=== PATIENT | female | born 1930 | race Caucasian/White ===

== ENCOUNTER → 2017-02-17 | Outpatient (CLI) | payer BC ==
[~2017-02-17] MED LIST: ASPCH81X PO; ATEN50TA PO; ATOR10TA82 PO; FURO20TA PO; LEVO75TA5 PO; LORA1TAB13 PO; NIFE60TA57 PO; PANT40TA PO; SERT50TA PO
--- NOTE | 2017-02-17 15:16 | MAMMOGRAPHY REPORT ---
BILATERAL DIGITAL SCREENING MAMMOGRAM WITH CAD: 02/17/2017 CLINICAL HISTORY: Routine screening. Patient has no complaints. TECHNIQUE: Bilateral CC and MLO views were obtained. Current study was also evaluated with a Comput er Aided Detection (CAD) system. COMPARISON: Comparison is made to exams dated: 02/13/2016 mammogram, 02/10/2015 mammogram, 02/09/2014 m ammogram, 02/08/2013 mammogram, 02/06/2012 mammogram, and 02/05/2011 mammogram - [facility] ter. BREAST COMPOSITION: The tissue of both breasts is heterogeneously dense, which may obscure small ma sses. FINDINGS: The parenchymal pattern is similar to prior exams. There are stable benign-appearing pedro cifications within the left breast. No developing mass, architectural distortion or cluster of susp icious microcalcifications is seen in either breast. IMPRESSION: ACR BI-RADS CATEGORY 2: BENIGN There is no mammographic evidence of malignancy. A 1 year screening mammogram is recommended. The p atient will receive written notification of the results. Approximately 10% of breast cancers are not detected with mammography. A negative mammographic repor t should not delay biopsy if a clinically suggestive mass is present. Micki Gonzales M.D. ay/:02/17/2017 15:03:45 Lead Manufacturing Technician: Amy TORO)(M), [facility] letter sent: Normal 1/2 BI-RADS Code: ACR BI-RADS Category 2: Benign
== END | disposition home or self-care (01) ==
LOC: C.MAMM 08:41
PROVIDERS: ATTEND Internal Medicine
DX: Z12.31 Encounter for screening mammogram for malignant neoplasm of breast (principal)

== ENCOUNTER → 2018-02-18 | Outpatient (CLI) | payer BC ==
--- NOTE | 2018-02-18 15:14 | MAMMOGRAPHY REPORT ---
BILATERAL DIGITAL SCREENING MAMMOGRAM TOMOSYNTHESIS WITH CAD: 02/18/2018 CLINICAL HISTORY: Routine screening. Patient has no complaints. TECHNIQUE: Breast tomosynthesis in addition to standard 2D mammography was performed. Current study was also evaluated with a Computer Aided Detection (CAD) system. COMPARISON: Comparison is made to exams dated: 02/17/2017 mammogram, 02/13/2016 mammogram, 02/10/2015 m ammogram, 02/09/2014 mammogram, 02/08/2013 mammogram, and 02/06/2012 mammogram - [facility] er. BREAST COMPOSITION: The tissue of both breasts is heterogeneously dense, which may obscure small mas ses. FINDINGS: The parenchymal pattern is unchanged. There are stable benign calcifications in the left b reast. No developing mass, architectural distortion or cluster of suspicious microcalcifications is s een in either breast. IMPRESSION: ACR BI-RADS CATEGORY 2: BENIGN There is no mammographic evidence of malignancy. A 1 year screening mammogram is recommended. The pa tient will receive written notification of the results. Approximately 10% of breast cancers are not detected with mammography. A negative mammographic report should not delay biopsy if a clinically suggestive mass is present. Micki Gonzales M.D. ay/:02/18/2018 09:44:43 Fusion Juncture Grinder: Amy TORO)(M), [facility] letter sent: Normal 1/2 BI-RADS Code: ACR BI-RADS Category 2: Benign
== END | disposition home or self-care (01) ==
LOC: C.MAMM 08:41
PROVIDERS: ATTEND Internal Medicine
DX: Z12.31 Encounter for screening mammogram for malignant neoplasm of breast (principal)

== ENCOUNTER 2019-10-16 11:55 | Inpatient (IN) ==
[2019-10-16 13:27] LABS: Appearance Urine Clear (Clear); Bilirubin Urine Negative (Negative); Blood Urine Trace (Negative); Color Urine Yellow; Glucose Urine UA Negative (Negative); Ketones Urine Negative (Negative); Leukocyte Esterase Urine Negative (Negative); Nitrite Urine Negative (Negative); Protein Urine Negative (Negative); Specific Gravity Urine 1.025 (1.000-1.030); Urobilinogen Urine Negative (Negative)
[2019-10-16 13:29] LABS: Basophils # (auto) 0.01 K/uL (0-0.2); Basophils % (auto) 0.1 %; Eosinophils # (auto) 0.03 K/uL (0-0.5); Eosinophils % (auto) 0.3 %; Hematocrit (blood only) 39.9 % (37-47); Hemoglobin 13.2 g/dL (12.0-16.0); Immature Granulocytes # (auto) 0.02 K/uL (0.00-0.02); Immature Granulocytes % (auto) 0.2 %; Lymphocytes # (auto) 1.22 K/uL (1.2-3.4); Lymphocytes % (auto) 11.6 %; Mean Corpuscular Hemoglobin 33.1 pg (25-34); Mean Corpuscular Hgb Conc 33.1 g/dL (32-36); Mean Platelet Volume 9.9 fL (7.4-10.4); Monocytes # (auto) 0.76 K/uL (0.11-0.59); Monocytes % (auto) 7.2 %; Neutrophils # (auto) 8.52 K/uL (1.4-6.5); Neutrophils % (auto) 80.6 %; Platelet Count 215 K/uL (130-400); RDW Coefficient of Variation 12.8 % (11.5-14.5); Red Blood Count 3.99 M/uL (4.2-5.4); White Blood Count 10.56 K/uL (4.8-10.8)
[2019-10-16 13:40] LABS: Mucus Urine Present (None Prsent); RBC Urine 0-4 /hpf (0-4); WBC Urine 0-5 /hpf (0-5)
[2019-10-16 13:41] LABS: Bacteria Urine 1+ (Negative)
[2019-10-16 13:45] LABS: Alanine Aminotransferase 25 U/L (12-78); Albumin Level 3.6 gm/dl (3.4-5.0); Aspartate Aminotransferase 18 U/L (15-37); BUN Creatinine Ratio 24.1 (10-20); Blood Urea Nitrogen 19 mg/dl (7-18); Calcium 8.8 mg/dl (8.5-10.1); Carbon Dioxide 31 mmol/L (21-32); Chloride 109 mmol/L (98-107); Creatinine Clr Calc Pharmacy 37.4 ml/min; Est GFR (African American) 74.6; Est GFR (Non-African American) 64.4; Glucose 107 mg/dl (70-99); Magnesium 2.1 mg/dl (1.8-2.4); Potassium 3.8 mmol/L (3.5-5.1); Sodium 143 mmol/L (136-145)
--- NOTE | 2019-10-16 13:49 | XRay Report ---
XR chest 1V portable CLINICAL HISTORY: weakness COMPARISON STUDY: Chest radiograph August 30, 2018. FINDINGS: Lung volumes are mildly increased. Lungs are clear. There is no pneumothorax or pleural eff usion. Cardiac size is normal. Mediastinal contours are normal. There is no evidence for pulmonary ed taylor. Skinfold projects over the left hemithorax. IMPRESSION: No acute cardiopulmonary findings. Electronically signed by: Van Patrick M.D. 10/16/2019 1:47 PM
[2019-10-16 13:56] LABS: Alkaline Phosphatase 67 U/L (45-117); Bilirubin,Total 0.3 mg/dl (0.2-1); Globulin 3.5 gm/dl (2.5-4.0); Total Protein 7.1 gm/dl (6.4-8.2); Troponin I < 0.015 ng/ml (0-0.045)
--- NOTE | 2019-10-16 14:28 | CT Scan Report ---
CT OF THE HEAD WITHOUT CONTRAST CLINICAL HISTORY: Altered mental status. COMPARISON STUDY: Head CT October 22, 2015. CT DOSE: 709.48 mGy.cm TECHNIQUE: Helical axial images of the head were obtained without IV contrast. Automated exposure con trol was utilized for the study. A dose lowering technique was utilized adhering to the principles o f ALARA. FINDINGS: No acute intracranial hemorrhage, midline shift or mass effect is present. The ventricular system is unremarkable. The basilar cisterns are patent. No extra-axial collections are present. Ther e are no findings to suggest acute dural sinus thrombosis or acute territorial infarct. No significan t calvarial abnormalities are present. Visualized portions of the sinuses and mastoid air cells are c lear. White matter hypodensity suggests small vessel disease. The appearance of the brain is unchange d. IMPRESSION: No acute intracranial findings. Electronically signed by: Van Patrick M.D. 10/16/2019 2:27 PM
[2019-10-16] MEDS ORDERED: SODIUM CHLORIDE 0.9% 1000ML 1,000 ML IV STA (15:09)
--- NOTE | 2019-10-16 16:06 | History & Physical Report ---
Date of Service October 16, 2019 Assessment & Plan (1) Dementia: We will place her under observation, have case management see if they can place her into the appropriate facility. She will likely be here less than 2 midnights. ROS-I am not sure how reliable her review of systems this, however she complains of no Headache, No Visual Changes, No Nausea, No Vomiting, No Fever, No Chills, No Neck Pain or Stiffness, No Chest Pain, No Palpitations, No SOB, No REESE, No Cough, No Sputum, No Wheezing, No Abdominal Pain, No Diarrhea, No Hematemesis, No Hemoptysis, No Unexpected Weight Loss, No Flank pain, No Melena, No Hematochezia, No Frequency, No Urgency, No Burning, No Hematuria, No Rashes, No Diaphoresis. Appetite is Normal Physical Exam Gen-AAO x 2, NAD, Afebrile Head-NCAT, EOMI, PERRLA, Anicteric Sclera, No Posterior Pharyngeal Erythema Neck-Supple, No JVD, No Thyromegaly, No Masses, No LAD, No Bruits Lungs-Clear to Auscultation Bilaterally, No Rales, No Rhonchi, No Wheezing, No Crepitus Chest-No S4, +S1, +S2, No S3, No Murmurs, No Rubs, No Gallops, No Ectopy Abdomen-Soft, Bowel Sounds Present, Non Tender, Non Distended, No Hepatomegaly, No Splenomegaly, No Palpable Masses, No Rebound, No Rigidity, No Guarding Musculoskeletal-Full Range of Motion Bilaterally, No CVAT Extremities-No Cyanosis, No Clubbing, No Edema Nuero-Cranial Nerves II-XII grossly intact, Motor WNL, DTRs WNL, Strength WNL, Non Focal Psych-Normal Mood History of Present Illness 89-year-old white female with a past medical history of dementia was brought into the emergency room because she was walking around her bare feet outside. The ER physician felt it was too unsafe to send her home and was unable to place her from the ER. We will place her under observation and try to place her into a safer setting. She lives alone and has no children. A friend of hers was at the bedside to help with the history. Primary Care Provider: Arias Varghese DO Allergies Allergy/AdvReac Type Severity Reaction Status Date / Time Penicillins Allergy Intermediate RASH Verified 10/16/19 13:06 chocolate flavor Allergy Nausea Unverified 10/16/19 13:06 cinnamon Allergy Nausea Unverified 10/16/19 13:06 aspirin AdvReac Unknown Unverified 10/16/19 13:06 influenza virus vaccine tvs AdvReac Unknown Unverified 10/16/19 13:06 [id number](65 years up) [From Fluad 4539-5496 (65 yr up)(PF)] vaccine adjuvant emulsion AdvReac Unknown Unverified 10/16/19 13:06 MF59C.1 [From Fluad 1790-7332 (65 yr up)(PF)] Home Medications Home Medications Medication Instructions Recorded Confirmed Type calcium carbonate-vitamin D3 1 tab PO DAILY 08/30/18 10/16/19 History [Caltrate with Vitamin D3] multivitamin 1 cap PO QAM 08/30/18 10/16/19 History Past Med/Surg History Medical History Dementia Hard of hearing (Chronic) Family History Other No pertinent family history Social History Preferred Language: Afghan Feels Safe at Home: Yes Smoking Status: Never smoker Results & Data Vital Signs (Past 12 Hours) Vital Signs Temp Pulse Pulse Resp BP BP Pulse Ox 10/16/19 15:31 74 19 98 10/16/19 15:30 74 20 171/83 H 98 10/16/19 15:01 75 17 97 10/16/19 15:00 77 18 182/81 H 97 10/16/19 14:30 71 73 20 159/86 H 159/86 H 98 10/16/19 14:04 71 18 175/89 H 97 10/16/19 14:03 72 14 10/16/19 13:55 71 17 175/89 H 97 10/16/19 13:30 80 27 H 192/106 H 10/16/19 13:25 79 20 10/16/19 13:20 81 17 193/80 H 10/16/19 12:12 36.7 C 79 16 171/81 H 98 Allergies Penicillins Allergy (Intermediate, Verified 10/16/19 13:06) RASH chocolate flavor Allergy (Unverified 10/16/19 13:06) Nausea cinnamon Allergy (Unverified 10/16/19 13:06) Nausea aspirin Adverse Reaction (Unverified 10/16/19 13:06) Unknown influenza virus vaccine tvs [id number](65 years up) [From Fluad 2658-2903 (65 yr up)(PF)] Adverse Reaction (Unverified 10/16/19 13:06) Unknown vaccine adjuvant emulsion MF59C.1 [From Fluad [id number] (65 yr up)(PF)] Adverse Reaction (Unverified 10/16/19 13:06) Unknown Height/Weight/Isolation Height 5 ft 5 in Weight 50.3 kg Chemistry 10/16/19 13:21 Sodium 143 Potassium 3.8 Chloride 109 H Carbon Dioxide 31 Anion Gap 3.0 BUN 19 H Creatinine 0.81 Glucose 107 H Urinalysis 10/16/19 13:16 Urine Color Yellow Urine Appearance Clear Urine pH 6.0 Ur Specific [place] 1.025 Urine Protein Negative Urine Glucose (UA) Negative Urine Ketones Negative Urine Blood Trace H Urine Nitrite Negative Urine Bilirubin Negative Microbiology 10/16/19 13:16 Urine,Clean Catch Urine Culture - Pending
[2019-10-16] MEDS ORDERED: POLYETHYLENE (MIRALAX) 17 GM PACK PO PRN (16:31)
[2019-10-16] MEDS ORDERED: SODIUM CHLORIDE 0.9% 1000ML 1,000 ML IV SCH (16:31)
[2019-10-16] MEDS ORDERED: ACETAMINOPHEN 325 MG TAB PO PRN (16:31)
--- NOTE | 2019-10-16 17:47 | Emergency Department Note ---
Entered by Donald Wright acting as a scribe for ED Provider Note CHIEF COMPLAINT: Altered mental status HISTORY OF PRESENT ILLNESS: The patient is an 89 year old female who presents to the Emergency Room with friends for worsening altered mental status over the past week. Per the friend, the patient has progressing dementia and has not been acting like her baseline as of late. The friend reports the patient is checked on by a visiting nurse who noticed the patient has been hording things and keeping food well past their expiration date. The friend also notes the patient has been confused and last week walked outside for scientology in the blistering cold without a coat. The patient also has had a decrease in her appetite. The patient is unaware of why she is here and does not have any current complaints. HPI is limited secondary to the patient's altered mental status. Pt denies LOC, headache, fevers, chills, diaphoresis, visual changes, neck pain, chest pain, breathing difficulties, nausea, vomiting, abdominal pain, back pain, melena, hematochezia, urinary symptoms, numbness, weakness, lymphadenopathy, rash, or other complaints. REVIEW OF SYSTEMS: See HPI for pertinent positives and negatives. ROS is limited secondary to the patient's altered mental status. PMHx/PSHx: Dementia, Syncope SOCIAL HISTORY: Patient lives at home. PHYSICAL EXAM: GENERAL: Awake, alert, well-appearing, in no distress HENT: Normocephalic, atraumatic. Oropharynx unremarkable. EYES: Normal conjunctiva. Sclera non-icteric. NECK: Inspection normal. Non-tender. Supple. No nuchal rigidity. FROM. No masses. RESPIRATORY: Clear to auscultation. No wheezes. No rales. Normal respiratory effort. CARDIAC: Normal rate. Normal rhythm. No murmurs. No rubs. Extremities warm and well perfused. Pulses equal. No JVD. GI: Soft, non-distended. No tenderness to palpation. No rebound or guarding. No masses. RECTAL: Deferred. MUSCULOSKELETAL: Atraumatic. Chest examination reveals no tenderness. The back is symmetrical on inspection without obvious abnormality. There is no CVA tenderness to palpation. No joint edema. LOWER EXTREMITIES: Calves are equal size bilaterally and non-tender. No edema. No discoloration. NEURO: Demented sensorium. No sensory or motor deficits noted. SKIN: No rash or jaundice noted. EMERGENCY DEPARTMENT COURSE: 1301: Past medical records reviewed. The patient was evaluated in room C01B, and a complete history and physical examination were performed. 1505: I reevaluated the patient and discussed the treatment plan. She agrees with the plan. 1509: I discussed the patient's case with Rosetta KELLEY who is working under Dr. Alexis Arias Hospitalist. They agreed to accept the patient for further evaluation. MEDICAL DECISION MAKING: C1 Nursing notes reviewed and agree them. Additional history obtained from the patient's neighbors. They noted that she is becoming more forgetful and actually walked away from her house not properly dressed and without shoes in freezing temperatures. The patient's history was concerning for confusion and change in mental status. Differential diagnosis: Etiologies such as advancing dementia, infection, hypoglycemia, electrolyte abnormalities, cardiac sources, intracerebral event, toxicologic, neurologic, as well as others were entertained. Physical examination: As above. Demented sensorium. No focal findings. ER treatment provided: IV Lock Normal saline hydration. On reassessment the patient was stable. Diagnostics interpretation by me: ECG: No acute ischemia or dysrhythmia The labs revealed an unremarkable CBC and chemistry panel except for mild dehydration. Urinalysis had some bacteria but no clear signs of infection. Troponin negative. Imaging studies: Chest x-ray and CT scan of the head were negative. The patient has been experiencing a change in mental status which seems most consistent with advancing dementia however further work-up and management in the hospital is most appropriate for her safety and accuracy of the diagnosis. Consultation: A consultation was placed with the hospitalist. The case was discussed and diagnostics were reviewed. The patient was evaluated in the ER for further treatment. IMPRESSION: Confusion Dehydration PLAN: Being evaluated by the hospitalist The scribe's documentation has been prepared under my direction and personally reviewed by me in its entirety. I confirm that the note above accurately reflects all work, treatment, procedures, and medical decision making performed by me. Impression & Plan Confusion, Dehydration Past Med/Surg History Medical History Dementia Hard of hearing (Chronic) Family History Other No pertinent family history Social History Preferred Language: Sinhala Communication Ability: Effective Swabber Required: No Beliefs That Will Affect Care: None Current Living Situation: Alone Other Information That Helps Us Care for You: No Feels Safe at Home: Yes Safety Concerns: Feels Safe At This Time Smoking Status: Never smoker Do You Dip or Chew Tobacco: No ; Second Hand Exposure: No ; Tobacco Cessation Education Requested by Patient: No Hx Alcohol Use: No Hx Substance Use: No Results & Data Vital Signs Vital Signs - 24 hr 10/16/19 12:12 10/16/19 13:20 10/16/19 13:25 Temperature 36.7 C Temperature Source Oral Pulse Rate 79 81 79 Pulse Rate [Apical] Pulse Rate from SpO2 Sensor Pulse Rhythm Regular Pulse Rhythm [Apical] Pulse Strength Normal Pulse Strength [Apical] Respiratory Rate 16 17 20 Respiratory Effort / Characteristics Non-Labored Respiratory Depth Normal Respiratory Pattern Regular Blood Pressure 171/81 H 193/80 H Blood Pressure [Left Arm] Blood Pressure Mean 111 100 Blood Pressure Mean [Left Arm] Blood Pressure Position Sitting Pulse Oximetry 98 Oxygen Delivery Method Room Air Sepsis Recent Fever Within 48 Hours No Sepsis New/Unexplained Change in Mental Status No Sepsis Action Taken by Nursing No Action Required 10/16/19 13:30 10/16/19 13:55 10/16/19 14:03 Temperature Temperature Source Pulse Rate 80 72 Pulse Rate [Apical] 71 Pulse Rate from SpO2 Sensor Pulse Rhythm Pulse Rhythm [Apical] Regular Pulse Strength Pulse Strength [Apical] Respiratory Rate 27 H 17 14 Respiratory Effort / Characteristics Non-Labored Spontaneous Respiratory Depth Normal Respiratory Pattern Regular Blood Pressure 192/106 H Blood Pressure [Left Arm] 175/89 H Blood Pressure Mean 119 Blood Pressure Mean [Left Arm] 117 Blood Pressure Position Pulse Oximetry 97 Oxygen Delivery Method Room Air Sepsis Recent Fever Within 48 Hours Sepsis New/Unexplained Change in Mental Status Sepsis Action Taken by Nursing 10/16/19 14:04 10/16/19 14:30 10/16/19 15:00 Temperature Temperature Source Pulse Rate 71 71 77 Pulse Rate [Apical] 73 Pulse Rate from SpO2 Sensor 71 71 72 Pulse Rhythm Pulse Rhythm [Apical] Regular Pulse Strength Pulse Strength [Apical] Normal Respiratory Rate 18 20 18 Respiratory Effort / Characteristics Non-Labored Spontaneous Respiratory Depth Normal Respiratory Pattern Regular Blood Pressure 175/89 H 159/86 H 182/81 H Blood Pressure [Left Arm] 159/86 H Blood Pressure Mean 121 112 99 Blood Pressure Mean [Left Arm] 110 Blood Pressure Position Pulse Oximetry 97 98 97 Oxygen Delivery Method Room Air Sepsis Recent Fever Within 48 Hours Sepsis New/Unexplained Change in Mental Status Sepsis Action Taken by Nursing 10/16/19 15:01 Temperature Temperature Source Pulse Rate 75 Pulse Rate [Apical] Pulse Rate from SpO2 Sensor 74 Pulse Rhythm Pulse Rhythm [Apical] Pulse Strength Pulse Strength [Apical] Respiratory Rate 17 Respiratory Effort / Characteristics Respiratory Depth Respiratory Pattern Blood Pressure Blood Pressure [Left Arm] Blood Pressure Mean Blood Pressure Mean [Left Arm] Blood Pressure Position Pulse Oximetry 97 Oxygen Delivery Method Sepsis Recent Fever Within 48 Hours Sepsis New/Unexplained Change in Mental Status Sepsis Action Taken by [facility] Medications Current Medication List: was personally reviewed by me Laboratory Data Attestation: I reviewed the patient's lab results. Result diagrams: 10/16/19 13:21 10/16/19 13:21 Lab Results 10/16/19 10/16/19 10/16/19 Range/Units 13:16 13:21 13:21 WBC 10.56 (4.8-10.8) K/uL RBC 3.99 L (4.2-5.4) M/uL Hgb 13.2 (12.0-16.0) g/dL Hct 39.9 (37-47) % MCV 100.0 (80-100) fL MCH 33.1 (25-34) pg MCHC 33.1 (32-36) g/dL RDW Std Deviation 47.0 H (36.4-46.3) fL RDW Coeff of Alondra 12.8 (11.5-14.5) % Plt Count 215 (130-400) K/uL MPV 9.9 (7.4-10.4) fL Immature Gran % (Auto) 0.2 % Neut % (Auto) 80.6 % Lymph % (Auto) 11.6 % [place] % (Auto) 7.2 % Eos % (Auto) 0.3 % Baso % (Auto) 0.1 % Immature Gran # (Auto) 0.02 (0.00-0.02) K/uL Neut # (Auto) 8.52 H (1.4-6.5) K/uL Lymph # (Auto) 1.22 (1.2-3.4) K/uL [place] # (Auto) 0.76 H (0.11-0.59) K/uL Eos # (Auto) 0.03 (0-0.5) K/uL Baso # (Auto) 0.01 (0-0.2) K/uL Sodium 143 (136-145) mmol/L Potassium 3.8 (3.5-5.1) mmol/L Chloride 109 H (98-107) mmol/L Carbon Dioxide 31 (21-32) mmol/L Anion Gap 3.0 (3-11) BUN 19 H (7-18) mg/dl Creatinine 0.81 (0.6-1.2) mg/dl Est Cr Clr Drug Dosing 37.4 ml/min Est GFR ( Amer) 74.6 Est GFR (Non-Af Amer) 64.4 BUN/Creatinine Ratio 24.1 H (10-20) Glucose 107 H (70-99) mg/dl Calcium 8.8 (8.5-10.1) mg/dl Magnesium 2.1 (1.8-2.4) mg/dl Total Bilirubin 0.3 (0.2-1) mg/dl AST 18 (15-37) U/L ALT 25 (12-78) U/L Alkaline Phosphatase 67 (45-117) U/L Troponin I < 0.015 (0-0.045) ng/ml Total Protein 7.1 (6.4-8.2) gm/dl Albumin 3.6 (3.4-5.0) gm/dl Globulin 3.5 (2.5-4.0) gm/dl Albumin/Globulin Ratio 1.0 (0.9-2) TSH 1.180 (0.300-4.500) uIu/ml Urine Color Yellow Urine Appearance Clear (Clear) Urine pH 6.0 (4.5-7.5) Ur Specific [place] 1.025 (1.000-1.030) Urine Protein Negative (Negative) Urine Glucose (UA) Negative (Negative) Urine Ketones Negative (Negative) Urine Blood Trace H (Negative) Urine Nitrite Negative (Negative) Urine Bilirubin Negative (Negative) Urine Urobilinogen Negative (Negative) Ur Leukocyte Esterase Negative (Negative) Urine RBC 0-4 (0-4) /hpf Urine WBC 0-5 (0-5) /hpf Ur Epithelial Cells 10-20 H (0-5) /lpf Urine Bacteria 1+ H (Negative) Urine Mucus Present A (None Prsent) Administered Medications Sodium Chloride (Nss 1000ml) 1,000 mls @ 75 mls/hr IV .[id number] Stop: 10/17/19 19:10 Last Admin: 10/16/19 16:37 Dose: 75 mls/hr Documented by: [id number] Discontinued Medications Sodium Chloride (Nss 1000ml) 1,000 mls @ 125 mls/hr IV .Q8H STA Stop: 10/16/19 23:08 Last Infusion: 10/16/19 16:20 Dose: 0 mls/hr Documented by: [id number] Admin: 10/16/19 15:37 Dose: 125 mls/hr Documented by: [id number] Imaging Data Radiologist's Impression: Radiology results as stated below per my review and the radiologist's interpretation: XR chest 1V portable CLINICAL HISTORY: weakness COMPARISON STUDY: Chest radiograph August 30, 2018. FINDINGS: Lung volumes are mildly increased. Lungs are clear. There is no pneumothorax or pleural effusion. Cardiac size is normal. Mediastinal contours are normal. There is no evidence for pulmonary edema. Skinfold projects over the left hemithorax. IMPRESSION: No acute cardiopulmonary findings. Electronically signed by: Van Patrick M.D. 10/16/2019 1:[address] OF THE HEAD WITHOUT CONTRAST CLINICAL HISTORY: Altered mental status. COMPARISON STUDY: Head CT October 22, 2015. CT DOSE: 709.48 mGy.cm TECHNIQUE: Helical axial images of the head were obtained without IV contrast. Automated exposure control was utilized for the study. A dose lowering technique was utilized adhering to the principles of ALARA. FINDINGS: No acute intracranial hemorrhage, midline shift or mass effect is present. The ventricular system is unremarkable. The basilar cisterns are patent. No extra-axial collections are present. There are no findings to suggest acute dural sinus thrombosis or acute territorial infarct. No significant calvarial abnormalities are present. Visualized portions of the sinuses and mastoid air cells are clear. White matter hypodensity suggests small vessel disease. The appearance of the brain is unchanged. IMPRESSION: No acute intracranial findings. Electronically signed by: Van Patrick M.D. 10/16/2019 2:27 PM ECG Data Attestation: I personally reviewed and interpreted this ECG as follows: Indication: + altered mental status Rate (beats per minute): 68 Rhythm: sinus rhythm (with premature supraventricular complexes ) ECG Intervals/blocks: + Normal QRS ECG Inez: + Normal ECG ST segments: no ST elevation ECG Findings: no PACs and no PVCs Blood Pressure Blood Pressure Findings: Elevated blood pressure Blood Pressure Disposition: further management by hospitalist Discharge Plan Visit Data *Final* Discharge Date/Time: 10/16/19 16:12 Chief Complaint: Illness Stated Complaint: DECLINE IN MEMORY - CONFUSION ED Provider: Ramiro Baez Discharge Problem: Confusion, Dehydration Patient Disposition: Admitted As Inpatient Discharge Instructions Interventions: ED Discharge Assessment Last Done: 10/16/19 16:12 The scribe's documentation has been prepared under my direction and personally reviewed by me in its entirety. I confirm that the note above accurately reflects all work, treatment, procedures, and medical decision making performed by me.
[2019-10-16] MEDS ORDERED: cloNIDine HCL 0.1 MG TAB PO PRN (22:34)
[2019-10-17 06:24] LABS: Hematocrit (blood only) 36.2 % (37-47); Hemoglobin 12.2 g/dL (12.0-16.0); Mean Corpuscular Hemoglobin 33.6 pg (25-34); Mean Corpuscular Hgb Conc 33.7 g/dL (32-36); Mean Corpuscular Volume 99.7 fL (80-100); Mean Platelet Volume 10.2 fL (7.4-10.4); Platelet Count 209 K/uL (130-400); RDW Coefficient of Variation 12.5 % (11.5-14.5); RDW Standard Deviation 45.5 fL (36.4-46.3); Red Blood Count 3.63 M/uL (4.2-5.4); White Blood Count 7.63 K/uL (4.8-10.8)
[2019-10-17 06:51] LABS: BUN Creatinine Ratio 25.7 (10-20); Calcium 8.8 mg/dl (8.5-10.1); Creatinine Clr Calc Pharmacy 35.6 ml/min; Est GFR (African American) 70.4; Est GFR (Non-African American) 60.7; Potassium 4.1 mmol/L (3.5-5.1)
--- NOTE | 2019-10-17 07:28 | Hospitalist Progress Note ---
Date of Service October 17, 2019 Assessment & Plan (1) Dementia: HTN-As below Continue under observation, Clonidine ordered, have case management see if they can place her into the appropriate facility on Friday. BP meds given last PM ROS-I am not sure how reliable her review of systems this, however she complains of no Headache, No Visual Changes, No Nausea, No Vomiting, No Fever, No Chills, No Neck Pain or Stiffness, No Chest Pain, No Palpitations, No SOB, No REESE, No Cough, No Sputum, No Wheezing, No Abdominal Pain, No Diarrhea, No Hematemesis, No Hemoptysis, No Unexpected Weight Loss, No Flank pain, No Melena, No Hematochezia, No Frequency, No Urgency, No Burning, No Hematuria, No Rashes, No Diaphoresis. Appetite is Normal Physical Exam Gen-AAO x 2, NAD, Afebrile Head-NCAT, EOMI, PERRLA, Anicteric Sclera, No Posterior Pharyngeal Erythema Neck-Supple, No JVD, No Thyromegaly, No Masses, No LAD, No Bruits Lungs-Clear to Auscultation Bilaterally, No Rales, No Rhonchi, No Wheezing, No Crepitus Chest-No S4, +S1, +S2, No S3, No Murmurs, No Rubs, No Gallops, No Ectopy Abdomen-Soft, Bowel Sounds Present, Non Tender, Non Distended, No Hepatomegaly, No Splenomegaly, No Palpable Masses, No Rebound, No Rigidity, No Guarding Musculoskeletal-Full Range of Motion Bilaterally, No CVAT Extremities-No Cyanosis, No Clubbing, No Edema Nuero-Cranial Nerves II-XII grossly intact, Motor WNL, DTRs WNL, Strength WNL, Non Focal Psych-Normal Mood Results & Data Vital Signs (Past 12 Hours) Vital Signs Temp Pulse Resp BP Pulse Ox 10/17/19 07:24 36.8 C 62 18 118/71 95 10/16/19 22:56 36.6 C 68 16 142/70 H 95
[2019-10-18 06:20] LABS: Hematocrit (blood only) 35.7 % (37-47); Hemoglobin 11.8 g/dL (12.0-16.0); Mean Corpuscular Hemoglobin 33.2 pg (25-34); Mean Corpuscular Hgb Conc 33.1 g/dL (32-36); Mean Corpuscular Volume 100.6 fL (80-100); Mean Platelet Volume 9.8 fL (7.4-10.4); Platelet Count 198 K/uL (130-400); RDW Coefficient of Variation 12.7 % (11.5-14.5); RDW Standard Deviation 46.5 fL (36.4-46.3); Red Blood Count 3.55 M/uL (4.2-5.4); White Blood Count 7.15 K/uL (4.8-10.8)
[2019-10-18 06:53] LABS: BUN Creatinine Ratio 29.9 (10-20); Calcium 8.4 mg/dl (8.5-10.1); Creatinine Clr Calc Pharmacy 35.2 ml/min; Est GFR (African American) 69.4; Est GFR (Non-African American) 59.9; Potassium 4.3 mmol/L (3.5-5.1)
--- NOTE | 2019-10-18 08:44 | Hospitalist Progress Note ---
Date of Service October 18, 2019 Assessment & Plan (1) Dementia: HTN-As below Awaiting placement, see if we can place her into the appropriate facility on Today. ROS-I am not sure how reliable her review of systems this, however she complains of no Headache, No Visual Changes, No Nausea, No Vomiting, No Fever, No Chills, No Neck Pain or Stiffness, No Chest Pain, No Palpitations, No SOB, No REESE, No Cough, No Sputum, No Wheezing, No Abdominal Pain, No Diarrhea, No Hematemesis, No Hemoptysis, No Unexpected Weight Loss, No Flank pain, No Melena, No Hematochezia, No Frequency, No Urgency, No Burning, No Hematuria, No Rashes, No Diaphoresis. Appetite is Normal Physical Exam Gen-AAO x 2, NAD, Afebrile Head-NCAT, EOMI, PERRLA, Anicteric Sclera, No Posterior Pharyngeal Erythema Neck-Supple, No JVD, No Thyromegaly, No Masses, No LAD, No Bruits Lungs-Clear to Auscultation Bilaterally, No Rales, No Rhonchi, No Wheezing, No Crepitus Chest-No S4, +S1, +S2, No S3, No Murmurs, No Rubs, No Gallops, No Ectopy Abdomen-Soft, Bowel Sounds Present, Non Tender, Non Distended, No Hepatomegaly, No Splenomegaly, No Palpable Masses, No Rebound, No Rigidity, No Guarding Musculoskeletal-Full Range of Motion Bilaterally, No CVAT Extremities-No Cyanosis, No Clubbing, No Edema Nuero-Cranial Nerves II-XII grossly intact, Motor WNL, DTRs WNL, Strength WNL, Non Focal Psych-Normal Mood Results & Data Vital Signs (Past 12 Hours) Vital Signs Temp Pulse Resp BP Pulse Ox 10/18/19 07:54 36.8 C 59 L 20 145/74 H 95 10/17/19 22:40 36.3 C L 62 18 130/74 93
[2019-10-19 06:21] VITALS: O2SAT 97
--- NOTE | 2019-10-19 08:52 | Hospitalist Progress Note ---
Date of Service October 19, 2019 Assessment & Plan (1) Dementia: HTN-As below Awaiting placement, see if we can place her into the appropriate facility Today. Paperwork filled out ROS- no Headache, No Visual Changes, No Nausea, No Vomiting, No Fever, No Chills, No Neck Pain or Stiffness, No Chest Pain, No Palpitations, No SOB, No REESE, No Cough, No Sputum, No Wheezing, No Abdominal Pain, No Diarrhea, No Hematemesis, No Hemoptysis, No Unexpected Weight Loss, No Flank pain, No Melena, No Hematochezia, No Frequency, No Urgency, No Burning, No Hematuria, No Rashes, No Diaphoresis. Appetite is Normal Physical Exam Gen-AAO x 2, NAD, Afebrile Head-NCAT, EOMI, PERRLA, Anicteric Sclera, No Posterior Pharyngeal Erythema Neck-Supple, No JVD, No Thyromegaly, No Masses, No LAD, No Bruits Lungs-Clear to Auscultation Bilaterally, No Rales, No Rhonchi, No Wheezing, No Crepitus Chest-No S4, +S1, +S2, No S3, No Murmurs, No Rubs, No Gallops, No Ectopy Abdomen-Soft, Bowel Sounds Present, Non Tender, Non Distended, No Hepatomegaly, No Splenomegaly, No Palpable Masses, No Rebound, No Rigidity, No Guarding Musculoskeletal-Full Range of Motion Bilaterally, No CVAT Extremities-No Cyanosis, No Clubbing, No Edema Nuero-Cranial Nerves II-XII grossly intact, Motor WNL, DTRs WNL, Strength WNL, Non Focal Psych-Normal Mood Results & Data Vital Signs (Past 12 Hours) Vital Signs Temp Pulse Resp BP BP Pulse Ox 10/19/19 06:19 36.5 C 71 18 147/71 H 97 10/18/19 23:53 36.7 C 87 18 123/64 92
--- NOTE | 2019-10-19 08:53 | Discharge Summary ---
Date of Service October 19, 2019 Admission HPI Per Admitting Provider 89-year-old white female with a past medical history of dementia was brought into the emergency room because she was walking around her bare feet outside. The ER physician felt it was too unsafe to send her home and was unable to place her from the ER. We will place her under observation and try to place her into a safer setting. She lives alone and has no children. A friend of hers was at the bedside to help with the history. Admission Exam Per Admitting Provider ROS-No Headache, No Visual Changes, No Nausea, No Vomiting, No Fever, No Chills, No Neck Pain or Stiffness, No Chest Pain, No Palpitations, No SOB, No REESE, No Cough, No Sputum, No Wheezing, No Abdominal Pain, No Diarrhea, No Hematemesis, No Hemoptysis, No Unexpected Weight Loss, No Flank pain, No Melena, No Hematochezia, No Frequency, No Urgency, No Burning, No Hematuria, No Rashes, No Diaphoresis. Appetite is Normal Physical Exam Gen-AAO x 2, NAD, Afebrile, demented Head-NCAT, EOMI, PERRLA, Anicteric Sclera, No Posterior Pharyngeal Erythema Neck-Supple, No JVD, No Thyromegaly, No Masses, No LAD, No Bruits Lungs-Clear to Auscultation Bilaterally, No Rales, No Rhonchi, No Wheezing, No Crepitus Chest-No S4, +S1, +S2, No S3, No Murmurs, No Rubs, No Gallops, No Ectopy Abdomen-Soft, Bowel Sounds Present, Non Tender, Non Distended, No Hepatomegaly, No Splenomegaly, No Palpable Masses, No Rebound, No Rigidity, No Guarding Musculoskeletal-Full Range of Motion Bilaterally, No CVAT Extremities-No Cyanosis, No Clubbing, No Edema Nuero-Cranial Nerves II-XII grossly intact, Motor WNL, DTRs WNL, Strength WNL, Non Focal Psych-Normal Mood Principal Diagnosis Progressive dementia HTN Discharge Exam Physical Exam Gen-AAO x 2, NAD, Afebrile Head-NCAT, EOMI, PERRLA, Anicteric Sclera, No Posterior Pharyngeal Erythema Neck-Supple, No JVD, No Thyromegaly, No Masses, No LAD, No Bruits Lungs-Clear to Auscultation Bilaterally, No Rales, No Rhonchi, No Wheezing, No Crepitus Chest-No S4, +S1, +S2, No S3, No Murmurs, No Rubs, No Gallops, No Ectopy Abdomen-Soft, Bowel Sounds Present, Non Tender, Non Distended, No Hepatomegaly, No Splenomegaly, No Palpable Masses, No Rebound, No Rigidity, No Guarding Musculoskeletal-Full Range of Motion Bilaterally, No CVAT Extremities-No Cyanosis, No Clubbing, No Edema Nuero-Cranial Nerves II-XII grossly intact, Motor WNL, DTRs WNL, Strength WNL, Non Focal Psych-Pleasant Discharge Data Allergies Allergy/AdvReac Type Severity Reaction Status Date / Time Penicillins Allergy Intermediate RASH Verified 10/16/19 13:06 chocolate flavor Allergy Mild Nausea Verified 10/16/19 16:34 cinnamon Allergy Mild Nausea Verified 10/16/19 16:34 latex Allergy Rash Verified 10/16/19 16:35 aspirin AdvReac Unknown Unknown Verified 10/16/19 16:34 influenza virus vaccine tvs AdvReac Unknown Unknown Verified 10/16/19 16:34 [id number](65 years up) [From Fluad (65 yr up)(PF)] vaccine adjuvant emulsion AdvReac Unknown Unknown Verified 10/16/19 16:34 MF59C.1 [From Fluad (65 yr up)(PF)] Consultations 10/16/19 15:12 ED Decision to Admit Stat 10/16/19 16:31 Consult Case Management - Discharge Planning Routine Ordered Studies 10/16/19 12:57 CT head/brain wo con Stat Current Diagnoses Unspecified dementia without behavioral disturbance (10/16/19) Allergies Penicillins Allergy (Intermediate, Verified 10/16/19 13:06) RASH chocolate flavor Allergy (Mild, Verified 10/16/19 16:34) Nausea cinnamon Allergy (Mild, Verified 10/16/19 16:34) Nausea latex Allergy (Verified 10/16/19 16:35) Rash aspirin Adverse Reaction (Unknown, Verified 10/16/19 16:34) Unknown influenza virus vaccine tvs [id number](65 years up) [From Fluad (65 yr up)(PF)] Adverse Reaction (Unknown, Verified 10/16/19 16:34) Unknown vaccine adjuvant emulsion MF59C.1 [From Fluad [id number] (65 yr up)(PF)] Adverse Reaction (Unknown, Verified 10/16/19 16:34) Unknown Height/Weight/Isolation Height 5 ft 5 in Weight 50.3 kg Chemistry 10/18/19 05:35 Sodium 142 Potassium 4.3 Chloride 109 H Carbon Dioxide 30 Anion Gap 3.0 BUN 26 H Creatinine 0.86 Glucose 88 Microbiology 10/16/19 13:16 Urine,Clean Catch Urine Culture - Final More than three types of organisms present, all moderate counts mixed probable skin dick. No further identifications or sensitivities to follow. Hospital Course (1) Dementia: HTN-As below Awaiting placement, see if we can place her into the appropriate facility Today. Paperwork filled out ROS- no Headache, No Visual Changes, No Nausea, No Vomiting, No Fever, No Chills, No Neck Pain or Stiffness, No Chest Pain, No Palpitations, No SOB, No REESE, No Cough, No Sputum, No Wheezing, No Abdominal Pain, No Diarrhea, No Hematemesis, No Hemoptysis, No Unexpected Weight Loss, No Flank pain, No Melena, No Hematochezia, No Frequency, No Urgency, No Burning, No Hematuria, No Rashes, No Diaphoresis. Appetite is Normal Physical Exam Gen-AAO x 2, NAD, Afebrile Head-NCAT, EOMI, PERRLA, Anicteric Sclera, No Posterior Pharyngeal Erythema Neck-Supple, No JVD, No Thyromegaly, No Masses, No LAD, No Bruits Lungs-Clear to Auscultation Bilaterally, No Rales, No Rhonchi, No Wheezing, No Crepitus Chest-No S4, +S1, +S2, No S3, No Murmurs, No Rubs, No Gallops, No Ectopy Abdomen-Soft, Bowel Sounds Present, Non Tender, Non Distended, No Hepatomegaly, No Splenomegaly, No Palpable Masses, No Rebound, No Rigidity, No Guarding Musculoskeletal-Full Range of Motion Bilaterally, No CVAT Extremities-No Cyanosis, No Clubbing, No Edema Nuero-Cranial Nerves II-XII grossly intact, Motor WNL, DTRs WNL, Strength WNL, Non Focal Psych-Normal Mood Total Time Total Time Spent Total Time Spent (In Minutes): 40 mins Total Time Includes: Examination of the Patient, Discharge Planning, Medication Reconciliation and Communication With Other Providers Discharge Plan Discharge Items Reason For Visit: DECLINING FUNCTIONAL STATUS, NEED FOR PLACEMENT Medications and DC Order Prescriptions: No Action multivitamin Capsule 1 cap PO QAM RF: 0 calcium carbonate-vitamin D3 [Caltrate with Vitamin D3] 600 mg(1,500mg) -800 unit Tablet 1 tab PO DAILY RF: 0 Admission Data Admit Date/Time: 10/16/19 15:14 Attending Provider: Wm Espinoza Admit Provider: Wm Espinoza Primary Care Provider: Arias Varghese Other Providers: Wm Espinoza
[2019-10-19 15:13] VITALS: BP 122/78; PULSE 78; TEMP 98.2
== END 2019-10-19 15:47 | disposition home or self-care (01) | DRG 884 ==
LOC: ED 11:55 → 4W 15:14